=== PATIENT | male | born 1995 | race Caucasian/White ===

== ENCOUNTER 2018-07-28 20:01 | Emergency (ER) | payer BC, OTHER ==
[2018-07-28] MEDS ORDERED: Sodium Chloride 0.9% 1,000 ML IV ONE (22:12)
[2018-07-28] MEDS ORDERED: Ondansetron 4 MG/2 ML SDV IVPUSH ONE (22:12)
[2018-07-28] MEDS ORDERED: Sodium Chloride 0.9% 10 ML Syringe FLUSH PRN (22:12)
[2018-07-28] MEDS ORDERED: Metoclopramide 10 MG/2 ML SDV IVPUSH ONE (22:12)
[2018-07-28] MEDS ORDERED: Pantoprazole 40 MG Vial IVPUSH ONE (22:12)
--- NOTE | 2018-07-28 22:36 | EDM.PDOC ---
ED HPI GENERAL MEDICAL PROBLEM - General Chief Complaint: Abdominal Pain Stated Complaint: Abdominal Pain; N/V; Headache Time Seen by Provider: 07/28/18 20:02 Source of Information: Reports: Patient, Family, RN, RN Notes Reviewed History Limitations: Reports: No Limitations - History of Present Illness INITIAL COMMENTS - FREE TEXT/NARRATIVE: Patient presents to the ED at [facility] with a 2 day history of abdominal pain, N/V, and headaches. Patient states his symptoms started yesterday and have persisted through tonight. His symptoms eventually become worse enough around 6pm that he sought treatment. Headache has resolved but other symptoms have persisted. Today he did feel better until this evening. He has a history of blood in stools but nothing recent. He states he usually has 3-4 BM's per day , no BM's that past 2 days. No fever or chills. No UTI symptoms. His last PCP visit was over 2 months ago. Onset: Gradual Duration: Waxing/Waning Location: Reports: Abdomen Quality: Reports: Ache, Burning, Dull Severity: Moderate Improves with: Reports: None Worsens with: Reports: None Context: Denies: Activity, Sick Contact, Trauma Associated Symptoms: Reports: Nausea/Vomiting Abdominal Pain Score (Numeric/FACES): 4 - Related Data Allergies Allergy/AdvReac Type Severity Reaction Status Date / Time No Known Allergies Allergy Verified 07/28/18 22:05 Home Meds: Home Meds Amitriptyline [Elavil] 75 mg PO DAILY 07/28/18 [History] Ondansetron HCl [Ondansetron] 4 mg PO Q8H PRN #30 tablet 07/28/18 [Rx] SUMAtriptan 100 mg PO ASDIRECTED PRN 07/28/18 [History] Past Medical History - Past Surgical History HEENT Surgical History: Reports: Other (See Below) Other HEENT Surgeries/Procedures: tubes in ears Musculoskeletal Surgical History: Reports: Other (See Below) Other Musculoskeletal Surgeries/Procedures:: left wrist surgery Social & Family History - Tobacco Use Smoking Status *Q: Never Smoker - Recreational Drug Use Recreational Drug Use: No ED ROS GENERAL - Review of Systems Review Of Systems: See Below Constitutional: Denies: Fever, Chills, Weakness Respiratory: Denies: Shortness of Breath, Cough Cardiovascular: Denies: Chest Pain, Palpitations GI/Abdominal: Reports: Abdominal Pain, Decreased Appetite, Nausea, Vomiting. Denies: Constipation, Diarrhea Skin: Reports: No Symptoms Neurological: Reports: Headache. Denies: Confusion, Dizziness ED EXAM, GI/ABD - Physical Exam Exam: See Below Exam Limited By: No Limitations General Appearance: Alert, No Apparent Distress Respiratory/Chest: No Respiratory Distress, Lungs Clear, Normal Breath Sounds Cardiovascular: Normal Peripheral Pulses, Regular Rate, Rhythm GI/Abdominal Exam: Soft, Tender (epigastric), Abnormal Bowel Sounds (Hypoactive) Neurological: Alert, Oriented Skin Exam: Warm, Dry, Intact, Normal Color Course - Vital Signs Last Recorded V/S: Last Vital Signs Temp 36.5 C 07/28/18 22:04 Pulse 105 H 07/28/18 22:04 Resp 20 07/28/18 22:04 BP 133/88 07/28/18 22:04 Pulse Ox 96 07/28/18 22:04 - Orders/Labs/Meds Orders: Active Orders 24 hr Category Date Time Status Abdomen Pelvis w Cont [CT] Stat Exams 07/28/18 22:11 Taken Sodium Chloride 0.9% [Saline Flush] Med 07/28/18 22:12 Active 10 ml FLUSH ASDIRECTED PRN Peripheral IV Insertion Adult [OM.PC] Routine Oth 07/28/18 22:12 Ordered Medication Orders Sodium Chloride (Saline Flush) 10 ml FLUSH ASDIRECTED PRN PRN Reason: Keep Vein Open Last Admin: 07/28/18 23:41 Dose: 10 ml Labs: Laboratory Tests 07/28/18 07/28/18 07/28/18 Range/Units 22:47 22:47 23:10 WBC 10.6 H (4.0-10.0) x10^3/uL RBC 5.41 (4.5-6.0) x10^6/uL Hgb 16.9 (14.0-18.0) g/dL Hct 46.5 (40.0-52.0) % MCV 86.0 (78.0-93.0) fL MCH 31.2 (26.0-32.0) pg MCHC 36.3 H (32.0-36.0) g/dL RDW Coeff of Tisha 13.1 (10.0-15.0) % Plt Count 312 (130-400) x10^3/uL Neut % (Auto) 69.7 (50.0-80.0) % Lymph % (Auto) 23.0 L (25.0-50.0) % [place] % (Auto) 5.9 (2.0-11.0) % Eos % (Auto) 1.2 (0.0-4.0) % Baso % (Auto) 0.2 (0.2-1.2) % ESR 9 (0-16) mm/hr Sodium 140 (136-145) mmol/L Potassium 3.8 (3.5-5.1) mmol/L Chloride 101 (98-107) mmol/L Carbon Dioxide 32 (21-32) mmol/L Anion Gap 10.8 (10-20) mmol/L BUN 20 H (7-18) mg/dL Creatinine 1.3 (0.70-1.30) mg/dL Est Cr Clr Drug Dosing 96.54 mL/min Estimated GFR (MDRD) > 60 Glucose 115 H (74-106) mg/dL Calcium 9.5 (8.5-10.1) mg/dL Corrected Calcium 9.18 (8.5-10.1) mg/dL Total Bilirubin 0.6 (0.2-1.0) mg/dL AST 23 (15-37) U/L ALT 54 (16-63) U/L Alkaline Phosphatase 86 (46-116) U/L C-Reactive Protein < 0.2 (<=0.9) mg/dL Total Protein 8.7 H (6.4-8.2) g/dL Albumin 4.4 (3.4-5.0) g/dL Globulin 4.3 Albumin/Globulin Ratio 1.02 Amylase 77 (25-115) U/L Lipase 69 L (73-393) U/L Urine Color Dark yellow H (YELLOW) Urine Appearance Slightly cloudy H (CLEAR) Urine pH 7.0 (5.0-8.0) Ur Specific [place] 1.015 Urine Protein Negative (NEGATIVE) mg/dL Urine Glucose (UA) Negative (NEGATIVE) mg/dL Urine Ketones Trace H (NEGATIVE) mg/dL Urine Occult Blood Negative (NEGATIVE) Urine Nitrite Negative (NEGATIVE) Urine Bilirubin Negative (NEGATIVE) Urine Urobilinogen 0.2 (0.2) EU/dL Ur Leukocyte Esterase Negative (NEGATIVE) Urine RBC Not seen (NOT SEEN) /HPF Urine WBC Not seen (NOT SEEN) /HPF Ur Squamous Epith Cells Not seen (NEGATIVE) /HPF Amorphous Sediment Many Urine Bacteria Few H (NEGATIVE) /HPF Urine Mucus Many H (NEGATIVE) /LPF Meds: Medications Generic Name Dose Route Start Last Admin Trade Name Denise PRN Reason Stop Dose Admin Sodium Chloride 10 ml 07/28/18 22:12 07/28/18 23:41 Saline Flush FLUSH 10 ml ASDIRECTED PRN Administration Keep Vein Open Discontinued Medications Generic Name Dose Route Start Last Admin Trade Name Denise PRN Reason Stop Dose Admin Sodium Chloride 1,000 mls @ 999 mls/hr 07/28/18 22:12 07/28/18 23:36 Normal Saline IV 07/28/18 23:12 999 mls/hr ONETIME ONE Administration Iopamidol 100 ml 07/28/18 22:51 07/28/18 22:53 Isovue-300 (61%) IVPUSH 07/28/18 22:52 100 ml ONETIME ONE Administration Metoclopramide HCl 10 mg 07/28/18 22:12 07/28/18 23:37 Reglan IVPUSH 07/28/18 22:13 10 mg ONETIME ONE Administration Ondansetron HCl 4 mg 07/28/18 22:12 07/28/18 23:36 Zofran IVPUSH 07/28/18 22:13 4 mg ONETIME ONE Administration Pantoprazole Sodium 40 mg 07/28/18 22:12 07/28/18 23:41 Protonix Iv IVPUSH 07/28/18 22:13 40 mg ONETIME ONE Administration - Radiology Interpretation Free Text/Narrative:: CT Abd/Pelvis w/contrast: No acute or inflammatory abnormality; Stool filled colon with a few scattered left-sided diverticula See scanned report in EMR for details CT Results Date: 07/28/18 CT Results Time: 23:21 Departure - Departure Time of Disposition: 23:27 Disposition: Home, Self-Care 01 Condition: Good Clinical Impression: GERD (gastroesophageal reflux disease) Qualifiers: Esophagitis presence: without esophagitis Qualified Code(s): K21.9 - Gastro- esophageal reflux disease without esophagitis Abdominal pain Qualifiers: Abdominal location: epigastric Qualified Code(s): R10.13 - Epigastric pain Nausea & vomiting Qualifiers: Vomiting type: unspecified Vomiting Intractability: non-intractable Qualified Code(s): R11.2 - Nausea with vomiting, unspecified - Discharge Information *PRESCRIPTION DRUG MONITORING PROGRAM REVIEWED*: Not Applicable *COPY OF PRESCRIPTION DRUG MONITORING REPORT IN PATIENT RAFA: Not Applicable Prescriptions: Ondansetron HCl [Ondansetron] 4 mg PO Q8H PRN #30 tablet PRN Reason: Nausea/Vomiting Instructions: Abdominal Pain, Adult, Nausea and Vomiting, Adult, Gastroesophageal Reflux Disease, Adult Referrals: Denny Sal MD [Primary Care Provider] - Forms: ED Department Discharge Additional Instructions: 1. Stay well hydrated and rest 2. Labs and CT scan were ok 3. May want to start a medication like Prilosec for stomach upset 4. LOTS of water 5. Recommend using an over the counter medication to help regular bowels for now 6. See your Primary as symptoms warrant - Problem List Review Problem List Initiated/Reviewed/Updated: Yes - My Orders Last 24 Hours: My Active Orders 07/28/18 22:11 Abdomen Pelvis w Cont [CT] Stat 07/28/18 22:12 Sodium Chloride 0.9% [Saline Flush] 10 ml FLUSH ASDIRECTED PRN Peripheral IV Insertion Adult [OM.PC] Routine - Assessment/Plan Last 24 Hours: My Active Orders 07/28/18 22:11 Abdomen Pelvis w Cont [CT] Stat 07/28/18 22:12 Sodium Chloride 0.9% [Saline Flush] 10 ml FLUSH ASDIRECTED PRN Peripheral IV Insertion Adult [OM.PC] Routine Assessment:: GERD Abdominal Pain N/V Plan: Labs and CT results reviewed with patient. No acute emergency found. Recommend follow up with PCP for additional assessment and treatment. May benefit from starting a PPI at this point. Needs to start a stool softener for now. Increase water intake.
[2018-07-28] MEDS ORDERED: Iopamidol 612 MG/ML 100 ML Bottle IVPUSH ONE (22:51)
[2018-07-28 23:11] LABS: ANION GAP 10.8 mmol/L (10-20); CHLORIDE,CL 101 mmol/L (98-107); SODIUM,NA 140 mmol/L (136-145)
== END 2018-07-29 00:08 | disposition home or self-care (01) ==
LOC: VM.ED 20:01
DX: K21.9 Gastro-esophageal reflux disease without esophagitis (principal); Z79.899 Other long term (current) drug therapy
CPT/HCPCS: 36415; 74177; 80053; 81001; 82150; 83690; 85025; 85652; 86140; 96365; 96375; 99284; C9113; J2405; J2765; J7030; J7050; Q9967